=== PATIENT | female | born 1960 | race Two or more races ===

== ENCOUNTER → 2024-07-03 | Outpatient (CLI) | payer MEDICAID, SELFPAY ==
--- NOTE | 2024-07-03 09:40 | XR_ITS ---
Examination: Bone densitometry Date and time of exam:July 03, 2024 0933 hours INDICATIONS: Menopause age 42 prednisone administration 5 months ago, diabetic diagnosis vitamin D 3 months Technique: Lumbar spine and hip total bone mineralization values of an calculated. Peak reference and age match control results have been displayed. Findings: Lumbar spine total bone mineralization is0.798 gm/cm2. This is 2.3 standard deviations below peak reference. This is 0.5 standard deviations below age-matched controls. Hip total bone mineralization is 0.758 gm/cm2 This is 1.5 standard deviations below peak reference. This is 0.4 standard deviations below age-matched controls Impression: There is osteopenia based on lumbar spine measurements. There is osteopenia based on hip measurements
== END | disposition home or self-care (01) ==
LOC: CDIM 09:20
PROVIDERS: Referring Provider Specialist; Visit Provider Specialist
DX: M15.9 Polyosteoarthritis, unspecified (principal); M85.89 Other specified disorders of bone density and structure, multiple sites
CPT/HCPCS: 77080